=== PATIENT | female | born 1975 | race Caucasian/White ===

== ENCOUNTER 2016-12-16 01:55 | Emergency (ER) | payer MEDICAID, OTHER ==
[~2016-12-16] VITALS: Ht 167.6 cm; Wt 85.0 kg
[2016-12-16 02:03] VITALS: Ht 167.6 cm; Wt 85.0 kg
[2016-12-16] MEDS ORDERED: PRENAT PO (04:35)
--- NOTE | 2016-12-16 04:38 | ERD ---
ER Documentation Chief Complaint Date/Time DATE: 12/16/16 TIME: 04:34 Chief Complaint 10 wks , pelvic pain vag bleeding today HPI 41-year-old female presents here in emergency department for complaints of pelvic pain and vaginal bleeding started today. Patient soaked one pad today. Patient is approximately 10 weeks , 1 para 0 0. Last menstruation 10/01/2016. Patient is complaining of pelvic pain, cramping pain, 4 /10 scale, accompanying the vaginal bleeding. Patient denies any fever or chills. Patient denies hematuria or dysuria. Patient denies any nausea vomiting. Patient did not take any medications up with symptoms. ROS All systems reviewed and are negative except as per history of present illness. Medications Home Meds Reported Medications Multivit/Min/Fol Ac/Iron/Pren* ( S*) Unknown Strength Tab, PO DAILY, TAB 12/16/16 Allergies Allergies: Coded Allergies: No Known Allergy (Unverified , 12/16/16) PMhx/Soc Medical and Surgical Hx: pt denies Medical Hx, pt denies Surgical Hx History of Surgery: No Anesthesia Reaction: No Hx Neurological Disorder: No Hx Respiratory Disorders: No Hx Cardiac Disorders: No Hx Psychiatric Problems: No Hx Miscellaneous Medical Probl: No Hx Alcohol Use: No Hx Substance Use: No Hx Tobacco Use: No Smoking Status: Never smoker FmHx Family History: diabetes Physical Exam Vitals Vital Signs Date Time Temp Pulse Resp B/P Pulse Ox O2 Delivery O2 Flow Rate FiO2 12/16/16 02:03 97.8 80 20 141/79 10 Physical Exam GENERAL: The patient is well developed and appropriate for usual state of health, in no apparent distress. CHEST: Clear to auscultation bilaterally. There are no rales, wheezes or rhonchi. HEART: Regular rate and rhythm. No murmurs, clicks, rubs or gallops. No S3 or S4. ABDOMEN: Soft, nontender and nondistended. Good bowel sounds. No rebound or guarding. No gross peritonitis. No gross organomegaly or masses. No Giraldo sign or McBurney point tenderness. BACK: No midline or flank tenderness. EXTREMITIES: Equal pulses bilaterally. There is no peripheral clubbing, cyanosis or edema. No focal swelling or erythema. Full range of motion. Grossly neurovascularly intact. NEURO: Alert and oriented. Cranial nerves 2-12 intact. Motor strength in all 4 extremities with 5/5 strength. Sensation grossly intact. Normal speech and gait. SKIN: There is no apparent rash or petechia. The skin is warm and dry. HEMATOLOGIC AND LYMPHATIC: There is no evidence of excessive bruising or lymphedema. No gross cervical, axillary, or inguinal lymphadenopathy. Vaginal: Small amount of blood in the vaginal vault, cervical os is closed. No adnexal tenderness or cervical motion tenderness noted. Result Diagram: 12/16/16 0433 Results 24 hrs Laboratory Tests Test 12/16/16 04:33 Basophils # 0.010^3/ul Basophils % 0.4% Blood Morphology Comment Eosinophils # 0.010^3/ul Eosinophils % 0.3% Hematocrit 41.8% Hemoglobin 14.0g/dl Lymphocytes # 1.210^3/ul Lymphocytes % 13.2% Mean Corpuscular Hemoglobin 29.3pg Mean Corpuscular Hemoglobin Concent 33.5g/dl Mean Corpuscular Volume 87.6fl Mean Platelet Volume 11.7fl Monocytes # 0.410^3/ul Monocytes % 4.2% Neutrophils # 7.310^3/ul Neutrophils % 81.9% Nucleated Red Blood Cells # 0.010^3/ul Nucleated Red Blood Cells % 0.0/100WBC Platelet Count 59752^3/UL Red Blood Count 4.7710^6/ul Red Cell Distribution Width 14.6% White Blood Count 9.010^3/ul PROCEDURE: US OB. CLINICAL INDICATION: Vaginal bleeding in . TECHNIQUE: Transabdominal and endovaginal imaging of the uterus is available for review COMPARISON: None available FINDINGS: There is a single intrauterine with a mean sac diameter of 2.98 cm, giving an estimated gestational age of 8 weeks 0 days by ultrasound criteria. No pole or yolk sac is detected. No subchorionic hemorrhage is identified. The ovaries are unremarkable. IMPRESSION: Single intrauterine with an estimated gestational age of 8 weeks 0 days by ultrasound criteria. No pole or yolk sac is identified. Findings are compatible with anembryonic (blighted ovum). RPTAT: HH .Tracy Larry MD, Date Time Electronically viewed and signed by .Tracy Larry MD, on 12/16/2016 05 :11 .G/ CC: ARIA MARTÍNEZ NP Procedures/MDM Medical Decision Making: Patients vaginal bleeding is most likely consistent of possible threatened . Patient does not show any evidence of hypovolemic shock. Patients hemoglobin and hematocrit is stable. There is low suspicion for ectopic . LAWANDA results show blighted ovum possibly anembryonic . BetaHCG Quantitative is .The patient is Rh+, does not need RhoGAM this time. There is no signs of symptoms of dehydration. There is low suspicion for sepsis. Patient appears well and is hemodynamically stable. Disposition: Home. Condition: Stable Instructions: Patient is advised to do bed rest, avoid heavy lifting, and avoid having sex until cleared by OB doctor. Patient is advised to follow up with OB doctor or here at the ER in 48 hours for reevaluation of symptoms, repeat beta HCG quantitative and ultrasound. Patient is advised that is symptoms are worst, severe bleeding, dizziness, severe abdominal pain, fever, worst signs and symptoms to return to the emergency department immediately. Departure Diagnosis: Primary Impression: Threatened Additional Impression: Blighted ovum Condition: Stable Patient Instructions: Possible Miscarriage (Threatened ) Additional Instructions: Patient is advised to do bed rest, avoid heavy lifting, and avoid having sex until cleared by OB doctor. Patient is advised to follow up with OB doctor or here at the ER in 48 hours for reevaluation of symptoms, repeat beta HCG quantitative and ultrasound. Patient is advised that is symptoms are worst, severe bleeding, dizziness, severe abdominal pain, fever, worst signs and symptoms to return to the emergency department immediately. ARIA MARTÍNEZ NP Dec 16, 2016 04:38
[2016-12-16 05:09] LABS: BASOPHILS % 0.4 % (0.0-2.0); EOSINOPHILS % 0.3 % (0.0-7.0); HEMATOCRIT 41.8 % (37.0-47.0); LYMPHOCYTES # 1.2 10^3/ul (0.8-2.9); LYMPHOCYTES % 13.2 % (15.0-51.0); MEAN CORPUSCULAR HEMOGLOBIN 29.3 pg (29.0-33.0); MEAN CORPUSCULAR HGB CONC 33.5 g/dl (32.0-37.0); MEAN CORPUSCULAR VOLUME 87.6 fl (82.0-101.0); MEAN PLATELET VOLUME 11.7 fl (7.4-10.4); MONOCYTE # 0.4 10^3/ul (0.3-0.9); MONOCYTES % 4.2 % (0.0-11.0); NEUTROPHIL # 7.3 10^3/ul (1.6-7.5); NEUTROPHILS % 81.9 % (39.0-77.0); PLATELET COUNT 243 10^3/UL (140-440); RED BLOOD COUNT 4.77 10^6/ul (4.20-5.40); RED CELL DISTRIBUTION WIDTH 14.6 % (11.5-14.5)
--- NOTE | 2016-12-16 05:11 | RADRPT ---
PROCEDURE: US OB. CLINICAL INDICATION: Vaginal bleeding in . TECHNIQUE: Transabdominal and endovaginal imaging of the uterus is available for review COMPARISON: None available FINDINGS: There is a single intrauterine with a mean sac diameter of 2.98 cm, giving an estimated ge stational age of 8 weeks 0 days by ultrasound criteria. No pole or yolk sac is detected. No subchorionic hemorrhage is identified. The ovaries are unremarkable. IMPRESSION: Single intrauterine with an estimated gestational age of 8 weeks 0 days by ultrasound crit eria. No pole or yolk sac is identified. Findings are compatible with anembryonic ( blighted ovum). RPTAT: HH .Tracy Larry MD, MD Date Time Electronically viewed and signed by .Tracy Larry MD, on 12/16/2016 05:11 .G/
[2016-12-16 05:13] LABS: CONDITION 1; LH ANALYZER COMMENTS 1
[2016-12-16 06:10] LABS: ADD UMIC YES; URINE BILIRUBIN (Dip) NEGATIVE (NEGATIVE); URINE BLOOD (Dip) 3+ (NEGATIVE); URINE COLOR LT. YELLOW (YELLOW); URINE GLUCOSE (Dip) NEGATIVE (NEGATIVE); URINE KETONES (Dip) NEGATIVE (NEGATIVE); URINE LEUKOCYTE ESTERASE (Dip) NEGATIVE (NEGATIVE); URINE NITRITE (Dip) NEGATIVE (NEGATIVE); URINE TOTAL PROTEIN (Dip) TRACE (NEGATIVE); URINE UROBILINOGEN (Dip) 0.2 E.U./dL (0.1-1.0)
[2016-12-16 06:30] LABS: URINE RBCS >200 /HPF (0)
[2016-12-16 06:31] LABS: BACTERIA,URINE FEW
== END 2016-12-16 06:45 | disposition home or self-care (01) ==
LOC: FTE 01:55
DX: O20.0 Threatened abortion (principal)
CPT/HCPCS: 36415; 76801; 76817; 81001; 81003; 84702; 85025; 86900; 86901

== ENCOUNTER 2016-12-18 00:20 | Emergency (ER) | payer MEDICAID ==
[~2016-12-18] VITALS: Ht 160 cm; Wt 83.5 kg
[~2016-12-18 00:20] MED LIST: PRENAT PO
[2016-12-18 00:27] VITALS: Ht 160 cm; Wt 83.5 kg
[2016-12-18 03:50] LABS: ADD UMIC YES; URINE BILIRUBIN (Dip) NEGATIVE (NEGATIVE); URINE BLOOD (Dip) 3+ (NEGATIVE); URINE GLUCOSE (Dip) NEGATIVE (NEGATIVE); URINE KETONES (Dip) NEGATIVE (NEGATIVE); URINE LEUKOCYTE ESTERASE (Dip) 1+ (NEGATIVE); URINE NITRITE (Dip) NEGATIVE (NEGATIVE); URINE TOTAL PROTEIN (Dip) TRACE (NEGATIVE); URINE UROBILINOGEN (Dip) 0.2 E.U./dL (0.1-1.0)
[2016-12-18 03:52] LABS: BASOPHIL # 0.1 10^3/ul (0.0-0.1); BASOPHILS % 0.7 % (0.0-2.0); EOSINOPHILS # 0.1 10^3/ul (0.0-0.5); EOSINOPHILS % 1.3 % (0.0-7.0); HEMATOCRIT 40.6 % (37.0-47.0); HEMOGLOBIN 13.3 g/dl (12.0-16.0); LYMPHOCYTES # 1.9 10^3/ul (0.8-2.9); LYMPHOCYTES % 23.1 % (15.0-51.0); MEAN CORPUSCULAR HEMOGLOBIN 28.8 pg (29.0-33.0); MEAN CORPUSCULAR HGB CONC 32.8 g/dl (32.0-37.0); MEAN CORPUSCULAR VOLUME 87.9 fl (82.0-101.0); MEAN PLATELET VOLUME 12.3 fl (7.4-10.4); MONOCYTE # 0.5 10^3/ul (0.3-0.9); MONOCYTES % 6.4 % (0.0-11.0); NEUTROPHIL # 5.7 10^3/ul (1.6-7.5); NEUTROPHILS % 68.3 % (39.0-77.0); PLATELET COUNT 249 10^3/UL (140-415); RED BLOOD COUNT 4.62 10^6/ul (4.20-5.40); RED CELL DISTRIBUTION WIDTH 14.2 % (11.5-14.5); WHITE BLOOD COUNT 8.3 10^3/ul (4.8-10.8)
[2016-12-18 04:06] LABS: URINE COLOR RED (YELLOW)
[2016-12-18 04:14] LABS: BACTERIA,URINE MODERATE; SQUAMOUS EPITHELIAL CELL,UR MODERATE; URINE RBCS 25-50 /HPF (0)
--- NOTE | 2016-12-18 04:35 | RADRPT ---
PROCEDURE: US OB. CLINICAL INDICATION: Vaginal bleeding. Early . TECHNIQUE: Transabdominal views of the pelvis are available for review. COMPARISON: 12/16/2016 FINDINGS: The uterus is normal in size. The endometrial stripe measures 13 mm. Some fluid is present in the endocervical canal. The right ovary was not able to be seen. The left ovary measures 2.1 x 1.3 x 1 .3 cm and is unremarkable in appearance. Gross flow is seen in the left ovary. Cystic structure in the region of the upper vaginal canal may represent loculated fluid or passing gestational sac. No pole or yolk sac is seen. Transvaginal scan was not performed. IMPRESSION: Probable in progress. Physician Chi Date Time Electronically viewed and signed by Grace León Physician on 12/18/2016 04:35 LE/
--- NOTE | 2016-12-18 05:07 | ERD ---
ER Documentation Chief Complaint Date/Time DATE: 12/18/16 TIME: 05:04 Chief Complaint vaginal bleeding x 4 days. was here 3 days ago for same. 11weeks preg HPI This is a 41-year-old female presents to the ER for vaginal bleeding for the last 4 days. Patient was seen here 2 days ago and was told to return today for follow-up. Patient states that she began to bleed heavily lately and that earlier today. A0. Patient denies any urinary frequency or dysuria. She denies any pain at this time. ROS 12 point review of systems was done, all negative except per HPI. Medications Home Meds Reported Medications Multivit/Min/Fol Ac/Iron/Pren* ( S*) Unknown Strength Tab, PO DAILY, TAB 12/16/16 Allergies Allergies: Coded Allergies: No Known Allergy (Unverified , 12/18/16) PMhx/Soc Medical and Surgical Hx: pt denies Medical Hx, pt denies Surgical Hx History of Surgery: No Anesthesia Reaction: No Hx Neurological Disorder: No Hx Respiratory Disorders: No Hx Cardiac Disorders: No Hx Psychiatric Problems: No Hx Miscellaneous Medical Probl: No Hx Alcohol Use: No Hx Substance Use: No Hx Tobacco Use: No Physical Exam Vitals Vital Signs Date Time Temp Pulse Resp B/P Pulse Ox O2 Delivery O2 Flow Rate FiO2 12/18/16 00:27 97.8 79 20 135/72 79 Physical Exam GENERAL: The patient is well developed and appropriate for usual state of health , in no apparent distress. HEENT: Atraumatic. CHEST: Clear to auscultation bilaterally. There are no rales, wheezes or rhonchi. HEART: Regular rate and rhythm. No murmurs, clicks, rubs or gallops. ABDOMEN: Soft, nontender and nondistended. Good bowel sounds. No rebound or guarding. No gross peritonitis. No gross organomegaly or masses. No Giraldo sign or McBurney point tenderness. BACK: No midline or flank tenderness. NEURO: Alert and oriented. Result Diagram: 12/18/16 0331 Results 24 hrs Laboratory Tests Test 12/18/16 03:31 Basophils # 0.110^3/ul Basophils % 0.7% Beta HCG, Quantitative 616.3mIU/ml Eosinophils # 0.110^3/ul Eosinophils % 1.3% Hematocrit 40.6% Hemoglobin 13.3g/dl Lymphocytes # 1.910^3/ul Lymphocytes % 23.1% Mean Corpuscular Hemoglobin 28.8pg Mean Corpuscular Hemoglobin Concent 32.8g/dl Mean Corpuscular Volume 87.9fl Mean Platelet Volume 12.3fl Monocytes # 0.510^3/ul Monocytes % 6.4% Neutrophils # 5.710^3/ul Neutrophils % 68.3% Nucleated Red Blood Cells # 0.010^3/ul Nucleated Red Blood Cells % 0.0/100WBC Platelet Count 79045^3/UL Red Blood Count 4.6210^6/ul Red Cell Distribution Width 14.2% Urine Bacteria MODERATE Urine Bilirubin NEGATIVE Urine Clarity HAZY Urine Color RED Urine Glucose NEGATIVE% Urine Hemoglobin 3+ Urine Ketones NEGATIVE Urine Leukocyte Esterase 1+ Urine Microscopic RBC 25-50/HPF Urine Microscopic WBC 5-10/HPF Urine Nitrite NEGATIVE Urine Specific [place] <=1.005 Urine Squamous Epithelial Cells MODERATE Urine Total Protein TRACE Urine Urobilinogen 0.2 E.U./dL Urine pH 6.0 White Blood Count 8.310^3/ul Procedures/MDM Differential diagnosis: Threatened , missed , incomplete , ectopic , molar , UTI, pyelonephritis. This is a 41- year-old female presents to the ER with continued vaginal bleeding. Unfortunately at this time patient appears to be having a miscarriage. Her quantitative hCG has significantly decreased from 3000 to the 600s. Suspicion for ectopic is low. She needs to follow-up with her primary care doctor within 1-2 days and see her fancy stitcher as well. She states her to ER symptoms worsen. Patient is hemodynamically stable at this time her vital signs are stable. She stable for outpatient follow-up. Patient understands and agrees with plan. Departure Diagnosis: Primary Impression: Threatened Condition: Stable Patient Instructions: Miscarriage Additional Instructions: Call your primary care doctor TOMORROW for an appointment during the next 1-2 days.See the doctor sooner or return here if your condition worsens before your appointment time. FLAVIO MEDINA Dec 18, 2016 05:07
[2016-12-18 05:15] VITALS: BP 140/78; RESP 20; TEMP 98
== END 2016-12-18 05:19 | disposition home or self-care (01) ==
LOC: FTE 00:20
DX: O20.0 Threatened abortion (principal); Z3A.11 11 weeks gestation of pregnancy
CPT/HCPCS: 36415; 76801; 81001; 81003; 84702; 85025

== ENCOUNTER 2019-04-27 18:00 | Emergency (ER) | payer OTHER ==
[~2019-04-27] VITALS: Ht 160 cm; Wt 81.8 kg
[2019-04-27 18:17] VITALS: Ht 160 cm; Wt 81.8 kg
[2019-04-27] MEDS ORDERED: KETOROLAC 30 MG INJ IM STA (19:00)
[2019-04-27] MEDS ORDERED: DICL100G37 TOP (19:01)
[2019-04-27] MEDS ORDERED: NAPR-985 PO (19:01)
--- NOTE | 2019-04-27 19:05 | ERD ---
ER Documentation Chief Complaint Chief Complaint CP w/ back pain x3 weeks. no n/v/SOB HPI This is a otherwise healthy 43-year-old woman complaining of sharp nonexertional nonradiating chest pain x3 weeks, pain lasts for a few seconds multiple times per day. She denies any obvious precipitating or alleviating factors although pain is a little worse when she touches the anterior chest. Patient denies cough, no fevers or chills, no palpitations, no shortness of breath, no calf or leg swelling, no recent trauma. Patient has no concerning family history of early coronary artery disease, sudden cardiac , or MIs. Patient used ibuprofen twice with minimal relief. ROS All systems reviewed and are negative except as per history of present illness. Medications Home Meds Active Scripts Diclofenac Sodium* (Voltaren* Gel) 1% -100 Gm Gel, 2 GM TOP TID PRN for PAIN, #1 TUB Prov:BHARAT BILLY MD 04/27/19 Naproxen* (Naprosyn*) 500 Mg Tablet, 500 MG PO BID PRN for PAIN AND/OR INFLAMMATION, #30 TAB Prov:BHARAT BILLY MD 04/27/19 Reported Medications Multivit/Min/Fol Ac/Iron/Pren* ( S*) Unknown Strength Tab, PO DAILY, TAB 12/16/16 Allergies Allergies: Coded Allergies: No Known Allergy (Unverified , 12/18/16) PMhx/Soc History of Surgery: No Anesthesia Reaction: No Hx Neurological Disorder: No Hx Respiratory Disorders: No Hx Cardiac Disorders: No Hx Psychiatric Problems: No Hx Miscellaneous Medical Probl: No Hx Alcohol Use: No Hx Substance Use: No Hx Tobacco Use: No Smoking Status: Never smoker FmHx Family History: No diabetes Physical Exam Vitals Vital Signs Date Temp Pulse Resp B/P (MAP) Pulse Ox O2 O2 Flow FiO2 Time Delivery Rate 04/27/19 98.5 71 16 145/82 100 Room Air 18:41 (103) 04/27/19 98.5 80 16 155/74 100 18:17 (101) Physical Exam Const: No acute distress, well-developed well-nourished, afebrile Resp: Clear to auscultation bilaterally Cardio: Regular rate and rhythm, no murmurs Abd: Soft, non tender, non distended. Normal bowel sounds Skin: No petechiae or rashes, no abrasions contusions or hematomas. No soft tissue crepitus Back: No midline or flank tenderness Ext: No cyanosis, or edema, calves symmetrical, no popliteal cords sign Neur: Awake and alert x3, no focal deficits or facial asymmetry Psych: Normal Mood and Affect Results 24 hrs Current Medications Medications Dose Sig/Charline Start Time Status Last (Trade) Ordered Route PRN Stop Time Admin Dose Reason Admin Ketorolac 30 mg ONCE STAT 04/27/19 DC Tromethamine IM 19:00 (Toradol) 04/27/19 19:01 Procedures/MDM Reassurance was provided to the patient she was placed on rn cardiac rhythm strip revealed a narrow complex rhythm at 80 bpm. EKG performed, read by me revealed a normal sinus rhythm at 80 bpm, normal axis, narrow QRS complex, no concerning ST elevations or depressions noted I administered Toradol 30 mg IM x1. Patient does have minimal reproducible tenderness to touch over the left anterior chest but no signs of injury. Her pain sounds musculoskeletal and definitely noncardiac she will be managed as an outpatient with NSAIDs. Differential diagnoses considered, included but not limited to acute coronary syndrome, pulmonary embolism, aortic dissection, abdominal aortic aneurysm, sepsis, stroke, meningitis, encephalitis, pneumonia, appendicitis, cholecystitis, bowel obstruction, pyelonephritis, nephrolithiasis, cystitis, as well as metabolic, hematologic, and electrolyte abnormalities. As well as ab scess, cellulitis, fractures, and dislocations. Patient feels much better at this time, and vital signs are normal, symptoms pickard ve improved. I did give strict instructions to return to the ED if symptoms continue or worsen, patient will otherwise follow-up with primary care physician. Patient understood instructions and agreed to plan. Disclaimer: Inadvertent spelling and grammatical errors are likely due to EHR/dictation software use and do not reflect on the overall quality of patient care. Also, please note that the electronic time recorded on this note does not necessarily reflect the actual time of the patient encounter. Departure Diagnosis: Primary Impression: Chest wall muscle strain Encounter type: initial encounter Qualified Codes: S29.011A - Strain of muscle and tendon of front wall of thorax, initial encounter Condition: Good Patient Instructions: Chest Wall Strain BHARAT BILLY MD Apr 27, 2019 19:05
[2019-04-27 19:36] VITALS: BP 133/82; PULSE 71; RESP 16
== END 2019-04-27 19:38 | disposition home or self-care (01) ==
LOC: E/R 18:00
DX: S29.011A Strain of muscle and tendon of front wall of thorax, initial encounter (principal); R07.9 Chest pain, unspecified; X58.XXXA Exposure to other specified factors, initial encounter; Y92.9 Unspecified place or not applicable
CPT/HCPCS: 96372; 99284; J1885; 93005